=== PATIENT | male | born 1980 | race American Indian/Alaskan Native ===

== ENCOUNTER 2019-03-06 00:11 | Emergency (ER) | payer OTHER ==
[2019-03-06] MEDS ORDERED: NORCO 5/325 ONE (02:26)
[2019-03-06] MEDS ORDERED: NORCO 5/325 PO ONE (02:27)
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
[2019-03-06 04:36] VITALS: BP 122/70
== END 2019-03-06 04:40 | disposition home or self-care (01) ==
LOC: ED 00:11
DX: M54.2 Cervicalgia (principal); M54.6 Pain in thoracic spine; F17.200 Nicotine dependence, unspecified, uncomplicated; V87.7XXA Person injured in collision between other specified motor vehicles (traffic), initial encounter; Y93.89 Activity, other specified; Y92.488 Other paved roadways as the place of occurrence of the external cause; Y99.8 Other external cause status
CPT/HCPCS: 72040; 72070; 99283

== ENCOUNTER 2020-02-06 02:41 | Emergency (ER) | payer OTHER ==
[2020-02-06 02:57] VITALS: BP 135/89
[2020-02-06] MEDS ORDERED: LIDOCAINE VISCOUS 2% 15 ML ORAL LIQD PO ONE (02:58)
[2020-02-06] MEDS ORDERED: IBUPROFEN 600 MG TAB PO ONE (02:58)
[2020-02-06] MEDS ORDERED: predniSONE 20 MG TAB PO ONE (02:58)
[2020-02-06] MEDS ORDERED: AMOXICILLIN/K CLAV 875/125MG TAB PO ONE (02:59)
--- NOTE | 2020-02-06 03:04 | Emergency Department Report ---
ED General Adult HPI - General Chief complaint: Sore Throat Stated complaint: SWOLLEN THROAT Source: patient Mode of arrival: Ambulatory Limitations: No Limitations - History of Present Illness Initial comments: Patient is a 39-year-old -[place] male with no past medical history who presents to the ED with complaint of acute onset persistent severe sore throat with dysphagia intermittently for the last 1 month but which got worse in the last 2 days. Patient states that he noticed white exudates in his throat with worsening pain and dysphagia. Patient states that no one else at home or at work is had similar symptoms. Patient denies cough, nasal and sinus congestion, shortness of breath, headache, dizziness, syncope, chest pain, abdominal pain, nausea and vomiting or change in vision. MD Complaint: Sore throat -: Sudden, month(s) (1) Location: mouth Radiation: non-radiation Severity scale (0 -10): 7 Quality: aching, sharp Consistency: constant Improves with: none Worsens with: eating Associated Symptoms: denies other symptoms. denies: confusion, chest pain, cough, diaphoresis, fever/chills, headaches, loss of appetite, malaise, nausea/vomiting, rash, seizure, syncope Treatments Prior to Arrival: none - Related Data Previous Rx's Medication Instructions Recorded Last Taken Type Cyclobenzaprine [Flexeril 10 MG 10 mg PO QHS PRN #10 tablet 03/06/19 Unknown Rx TAB] Ibuprofen [Motrin 800 MG tab] 800 mg PO Q8HR PRN #20 tablet 03/06/19 Unknown Rx Ibuprofen [Motrin] 800 mg PO Q8HR PRN #30 tablet 02/06/20 Unknown Rx Lidocaine Viscous 2% 10 ml PO Q6H PRN #120 ml 02/06/20 Unknown Rx Penicillin V Potassium 500 mg PO Q6H #40 tablet 02/06/20 Unknown Rx predniSONE [Deltasone] 40 mg PO QDAY #10 tab 02/06/20 Unknown Rx Allergies Allergy/AdvReac Type Severity Reaction Status Date / Time No Known Allergies Allergy Verified 02/06/20 02:45 ED Review of Systems ROS: Stated complaint: SWOLLEN THROAT Other details as noted in HPI Constitutional: denies: chills, fever Eyes: denies: eye pain, eye discharge, vision change ENT: throat pain. denies: ear pain Respiratory: denies: cough, shortness of breath, wheezing Cardiovascular: denies: chest pain, palpitations Endocrine: no symptoms reported Gastrointestinal: denies: abdominal pain, nausea, diarrhea Genitourinary: denies: urgency, dysuria Musculoskeletal: denies: back pain, joint swelling, arthralgia Skin: denies: rash, lesions Neurological: denies: headache, weakness, paresthesias Psychiatric: denies: anxiety, depression Hematological/Lymphatic: denies: easy bleeding, easy bruising ED Past Medical Hx - Past Medical History Previous Medical History?: No - Surgical History Past Surgical History?: Yes Additional Surgical History: hernia repair - Social History Smoking Status: Current Every Day Smoker Substance Use Type: None - Medications Home Medications: Home Medications Medication Instructions Recorded Confirmed Last Taken Type Cyclobenzaprine [Flexeril 10 MG 10 mg PO QHS PRN #10 tablet 03/06/19 Unknown Rx TAB] Ibuprofen [Motrin 800 MG tab] 800 mg PO Q8HR PRN #20 tablet 03/06/19 Unknown Rx Ibuprofen [Motrin] 800 mg PO Q8HR PRN #30 tablet 02/06/20 Unknown Rx Lidocaine Viscous 2% 10 ml PO Q6H PRN #120 ml 02/06/20 Unknown Rx Penicillin V Potassium 500 mg PO Q6H #40 tablet 02/06/20 Unknown Rx predniSONE [Deltasone] 40 mg PO QDAY #10 tab 02/06/20 Unknown Rx ED Physical Exam - General Limitations: No Limitations General appearance: alert, in no apparent distress - Head Head exam: Present: atraumatic, normocephalic, normal inspection - Eye Eye exam: Present: normal appearance, PERRL, EOMI Pupils: Present: normal accommodation - ENT ENT exam: Present: mucous membranes moist, TM's normal bilaterally, normal external ear exam, other (Erythematous oropharynx with white exudates; no sign of peritonsillar abscess) - Neck Neck exam: Present: normal inspection, full ROM, lymphadenopathy. Absent: ten derness - Respiratory Respiratory exam: Present: normal lung sounds bilaterally. Absent: respiratory distress, wheezes, rales, rhonchi, chest wall tenderness, accessory muscle use, decreased breath sounds - Cardiovascular Cardiovascular Exam: Present: regular rate, normal rhythm, normal heart sounds. Absent: systolic murmur, diastolic murmur, rubs, gallop - GI/Abdominal GI/Abdominal exam: Present: soft, normal bowel sounds. Absent: tenderness, guarding, hyperactive bowel sounds - Extremities Exam Extremities exam: Present: normal inspection, full ROM, normal capillary refill - Back Exam Back exam: Present: normal inspection, full ROM. Absent: tenderness, CVA tenderness (R), muscle spasm, paraspinal tenderness - Neurological Exam Neurological exam: Present: alert, oriented X3, CN II-XII intact, normal gait, reflexes normal - Psychiatric Psychiatric exam: Present: normal affect, normal mood - Skin Skin exam: Present: warm, dry, intact, normal color. Absent: rash ED Course Vital Signs 02/06/20 02:44 Temperature 97.8 F Pulse Rate 87 Respiratory 18 Rate Blood Pressure 135/89 O2 Sat by Pulse 99 Oximetry ED Medical Decision Making - Medical Decision Making This is a 39-year-old -Hungarian male with no past medical history who presents to the ED with complaint of acute onset persistent severe sore throat with dysphagia intermittently for the last 1 month but which got worse in the last 2 days. Patient states that he noticed white exudates in his throat with worsening pain and dysphagia. Patient states that no one else at home or at work is had similar symptoms. In the ED, patient is alert and oriented x3 and is not in distress with normal vital signs. Patient was treated for pain in the ED and discharged home on medications based on the physical exam findings of acute pharyngitis. Patient was discharged home on medications and advised to follow-up with his primary care physician in 7 to 10 days for reevaluation or return to the ED immediately if symptoms get worse. - Differential Diagnosis Strep pharyngitis; Tonsillitis; URI; Viral pharyngitis Critical care attestation.: If time is entered above; I have spent that time in minutes in the direct care of this critically ill patient, excluding procedure time. ED Disposition Clinical Impression: Acute pharyngitis Qualifiers: Pharyngitis/tonsillitis etiology: unspecified etiology Qualified Code(s): J02.9 - Acute pharyngitis, unspecified Acute tonsillitis Qualifiers: Pharyngitis/tonsillitis etiology: unspecified etiology Qualified Code(s): J03.90 - Acute tonsillitis, unspecified Disposition: TO HOME OR SELFCARE Is pt being admited?: No Does the pt Need Aspirin: No Condition: Stable Instructions: Pharyngitis (ED), Strep Throat (ED) Additional Instructions: Take medications with food, drink plenty of fluids and follow up with your Primary Care Physician in 7-10 days for reevaluation. Return to the ED immediately if symptoms gets worse. Prescriptions: predniSONE [Deltasone] 40 mg PO QDAY #10 tab Lidocaine Viscous 2% 10 ml PO Q6H PRN #120 ml PRN Reason: Pain , Severe (7-10) Ibuprofen [Motrin] 800 mg PO Q8HR PRN #30 tablet PRN Reason: Pain , Severe (7-10) Penicillin V Potassium 500 mg PO Q6H #40 tablet Referrals: [facility] [Provider Group] - 3-5 Days Time of Disposition: 03:05 Print Language: PUERTO RICAN
== END 2020-02-06 03:43 | disposition home or self-care (01) ==
LOC: ED 02:41
DX: J03.90 Acute tonsillitis, unspecified (principal); J02.9 Acute pharyngitis, unspecified; F17.200 Nicotine dependence, unspecified, uncomplicated; Z98.890 Other specified postprocedural states; Z79.899 Other long term (current) drug therapy
CPT/HCPCS: 99282; J7512

== ENCOUNTER 2021-09-26 23:31 | Emergency (ER) | payer OTHER ==
[2021-09-27] MEDS ORDERED: ACETAMINOPHEN 500 MG TAB PO ONE (02:04)
[2021-09-27] MEDS ORDERED: ACETAMINOPHEN 500 MG TAB ONE (02:05)
--- NOTE | 2021-09-27 06:03 | Emergency Department Report ---
- General Chief Complaint: Fever Stated Complaint: BODYACHES CHILLS FEVER Source: patient Mode of arrival: Ambulatory Limitations: No Limitations - History of Present Illness Initial Comments: Patient is a 41-year-old -[place] male with no past medical history presented to the ED with complaint of acute onset persistent nasal and sinus congestion, persistent dry cough, sore throat, diffuse body aches and pains and frontal headache for the last 2 days worse in the last 12 hours. Patient also complains of subjective fever and chills and joint pains. Patient denies dizziness, syncope, chest pain, shortness of breath, nausea, vomiting, diarrhea, dysuria, urinary frequency and urgency or change in vision. MD Complaint: cough, sore throat, rhinorrhea, nasal congestion -: Sudden, days(s) (2) Severity: severe Severity scale (0 -10): 8 Quality: sharp, aching Consistency: constant Improves With: NSAID Worsens With: nothing Context: sick contacts Associated Symptoms: denies other symptoms, fever, chills, myalgias, diaphoresis, headache, rhinorrhea, nasal congestion, sore throat, cough. denies: chest pain, shortness of breath, abdominal pain, vomiting, diarrhea, dysuria, rash, right sweats, weight loss, epistaxis, ear pain Treatments Prior to Arrival: "cold medicine" - Related Data Previous Rx's Medication Instructions Recorded Last Taken Type Cyclobenzaprine [Flexeril 10 MG 10 mg PO QHS PRN #10 tablet 03/06/19 Unknown Rx TAB] Ibuprofen [Motrin] 800 mg PO Q8HR PRN #30 tablet 02/06/20 Unknown Rx Lidocaine Viscous 2% 10 ml PO Q6H PRN #120 ml 02/06/20 Unknown Rx Penicillin V Potassium 500 mg PO Q6H #40 tablet 02/06/20 Unknown Rx predniSONE [Deltasone] 40 mg PO QDAY #10 tab 02/06/20 Unknown Rx Azithromycin [Zithromax Z-MITA] 250 mg PO DAILY #6 tablet 09/27/21 Unknown Rx Brompheniramine/Pseudoephed/Dm 5 ml PO Q6H PRN #118 ml 09/27/21 Unknown Rx [Bromfed Dm Cough Syrup] Cetirizine HCl [Zyrtec 10mg tab] 10 mg PO DAILY #30 tablet 09/27/21 Unknown Rx Ibuprofen [Motrin 800 MG tab] 800 mg PO Q8HR PRN #30 tablet 09/27/21 Unknown Rx Allergies Allergy/AdvReac Type Severity Reaction Status Date / Time No Known Allergies Allergy Verified 02/06/20 02:45 ED Review of Systems ROS: Stated complaint: BODYACHES CHILLS FEVER Other details as noted in HPI Constitutional: chills, fever, malaise Eyes: denies: eye discharge, vision change ENT: throat pain, congestion. denies: as per HPI, dental pain, epistaxis Respiratory: cough. denies: no symptoms reported, shortness of breath, SOB with exertion, SOB at rest Cardiovascular: denies: as per HPI, chest pain, dyspnea on exertion, edema, syncope, other Endocrine: denies: no symptoms reported, see HPI, excessive sweating, intolerance to cold Gastrointestinal: denies: abdominal pain, nausea, vomiting, diarrhea, hematemesis Genitourinary: denies: as per HPI, urgency, dysuria Musculoskeletal: back pain, arthralgia, myalgia. denies: joint swelling Skin: denies: rash, lesions Neurological: denies: headache, weakness, paresthesias Psychiatric: denies: anxiety, depression Hematological/Lymphatic: denies: easy bleeding, easy bruising ED Past Medical Hx - Past Medical History Previous Medical History?: No - Surgical History Past Surgical History?: Yes Additional Surgical History: hernia repair - Social History Substance Use Type: Alcohol - Medications Home Medications: Home Medications Medication Instructions Recorded Confirmed Last Taken Type Cyclobenzaprine [Flexeril 10 MG 10 mg PO QHS PRN #10 tablet 03/06/19 Unknown Rx TAB] Ibuprofen [Motrin] 800 mg PO Q8HR PRN #30 tablet 02/06/20 Unknown Rx Lidocaine Viscous 2% 10 ml PO Q6H PRN #120 ml 02/06/20 Unknown Rx Penicillin V Potassium 500 mg PO Q6H #40 tablet 02/06/20 Unknown Rx predniSONE [Deltasone] 40 mg PO QDAY #10 tab 02/06/20 Unknown Rx Azithromycin [Zithromax Z-MITA] 250 mg PO DAILY #6 tablet 09/27/21 Unknown Rx Brompheniramine/Pseudoephed/Dm 5 ml PO Q6H PRN #118 ml 09/27/21 Unknown Rx [Bromfed Dm Cough Syrup] Cetirizine HCl [Zyrtec 10mg tab] 10 mg PO DAILY #30 tablet 09/27/21 Unknown Rx Ibuprofen [Motrin 800 MG tab] 800 mg PO Q8HR PRN #30 tablet 09/27/21 Unknown Rx ED Physical Exam - General Limitations: No Limitations General appearance: alert, in no apparent distress - Head Head exam: Present: atraumatic, normocephalic, normal inspection - Eye Eye exam: Present: normal appearance, PERRL, EOMI Pupils: Present: normal accommodation - ENT ENT exam: Present: mucous membranes moist, TM's normal bilaterally, normal external ear exam, other (Grossly congested nasal passages; palpable frontal sinus tenderness; mild erythematous oropharynx with swollen tonsils) - Neck Neck exam: Present: normal inspection, full ROM. Absent: tenderness - Respiratory Respiratory exam: Present: normal lung sounds bilaterally. Absent: respiratory distress, wheezes, rales, stridor, chest wall tenderness, accessory muscle use, decreased breath sounds - Cardiovascular Cardiovascular Exam: Present: normal rhythm, tachycardia, normal heart sounds. Absent: systolic murmur, diastolic murmur, rubs, gallop - GI/Abdominal GI/Abdominal exam: Present: soft, normal bowel sounds. Absent: tenderness, guarding, rebound, hyperactive bowel sounds, organomegaly, mass - Extremities Exam Extremities exam: Present: normal inspection, full ROM, normal capillary refill - Back Exam Back exam: Present: normal inspection, full ROM. Absent: tenderness, CVA tenderness (R), CVA tenderness (L), muscle spasm, paraspinal tenderness, vertebral tenderness - Neurological Exam Neurological exam: Present: alert, oriented X3, CN II-XII intact, normal gait, reflexes normal - Psychiatric Psychiatric exam: Present: normal affect, normal mood - Skin Skin exam: Present: warm, dry, intact, normal color. Absent: rash ED Course Vital Signs 09/26/21 23:33 Temperature 99.6 F Pulse Rate 101 H Respiratory 18 Rate Blood Pressure 118/72 O2 Sat by Pulse 95 Oximetry ED Medical Decision Making - Medical Decision Making This is a 41-year-old -[place] male with no past medical history presented to the ED with complaint of acute onset persistent nasal and sinus congestion, persistent dry cough, sore throat, diffuse body aches and pains and frontal headache for the last 2 days worse in the last 12 hours. Patient also complains of subjective fever and chills and joint pains. In the ED, patient is alert and oriented x3 and is not in any distress. Patient was treated for pain in the ED. On reevaluation, patient's pain resolved with medications. Rapid influenza and rapid strep test were negative. On reevaluation, patient felt better, patient's tachycardia resolved with medications. Patient is hemodynamically stable. Patient was discharged home on medications and advised to follow-up with his primary care physician in 7 to 10 days for reevaluation or return to the ED immediately if symptoms get worse. - Differential Diagnosis Influenza; strep pharyngitis; sinusitis; URI; bronchitis; COVID-19 Critical care attestation.: If time is entered above; I have spent that time in minutes in the direct care of this critically ill patient, excluding procedure time. ED Disposition Clinical Impression: Acute upper respiratory infection Acute bronchitis Qualifiers: Bronchitis organism: other organism Qualified Code(s): J20.8 - Acute bronchitis due to other specified organisms Acute pharyngitis Qualifiers: Pharyngitis/tonsillitis etiology: unspecified etiology Qualified Code(s): J02.9 - Acute pharyngitis, unspecified Disposition: 01 HOME / SELF CARE / HOMELESS Is pt being admited?: No Does the pt Need Aspirin: No Condition: Stable Instructions: Acute Bronchitis (ED), Upper Respiratory Infection, Adult, [id number], Acute Bronchitis, Adult, [id number], Pharyngitis, [id number] Additional Instructions: Rapid influenza and rapid strep test were negative. Therefore take medication with food, drink plenty of fluids and follow-up with your primary care physician in 7 to 10 days for reevaluation. Return to the ED immediately if symptoms get worse. Prescriptions: Brompheniramine/Pseudoephed/Dm [Bromfed Dm Cough Syrup] 5 ml PO Q6H PRN #118 ml PRN Reason: Cough Ibuprofen [Motrin 800 MG tab] 800 mg PO Q8HR PRN #30 tablet PRN Reason: Pain Azithromycin [Zithromax Z-MITA] 250 mg PO DAILY #6 tablet Cetirizine HCl [Zyrtec 10mg tab] 10 mg PO DAILY #30 tablet Referrals: [facility] [place] [Provider Group] - 7-10 days Time of Disposition: 06:04 Print Language: SETSWANA
[2021-09-27 06:55] VITALS: BP 129/84
== END 2021-09-27 06:59 | disposition home or self-care (01) ==
LOC: ED 23:31
DX: J06.9 Acute upper respiratory infection, unspecified (principal); J20.9 Acute bronchitis, unspecified; Z72.89 Other problems related to lifestyle; Z79.899 Other long term (current) drug therapy
CPT/HCPCS: 87116; 87400; 87430; 99283